=== PATIENT | female | born 1995 | race African-American/Black ===

== ENCOUNTER 2020-01-12 12:45 | Observation (INO) | payer MEDICAID ==
[~2020-01-12] VITALS: Ht 154.9 cm; Wt 95.7 kg
[2020-01-12] MEDS ORDERED: LACTATED RINGERS 1,000 ML IV SCH (13:15)
[2020-01-12] MEDS ORDERED: ONDANSETRON HCL 4MG/2ML INJ IV NR (13:15)
[2020-01-12 13:27] LABS: CLARITY URINE CLEAR (CLEAR); COLOR URINE YELLOW (YELLOW); KETONES URINE TRACE (NEGATIVE); LEUKOCYTE ESTERASE URINE NEGATIVE (NEGATIVE); NITRITE URINE NEGATIVE (NEGATIVE); OCCULT BLOOD URINE NEGATIVE (NEGATIVE); PH URINE 5.5 (4.5-8.0); PROTEIN URINE TRACE (NEGATIVE); SPECIFIC GRAVITY URINE 1.022 (1.005-1.030); UROBILINOGEN URINE 0.2 E.U./dL (0.2-1.0)
[2020-01-12 14:13] LABS: *AMPHETAMINES SCREEN URINE NEGATIVE (NEGATIVE); *BARBITURATES SCREEN URINE NEGATIVE (NEGATIVE); *BENZODIAZEPINES SCREEN URINE NEGATIVE (NEGATIVE); *COCAINE SCREEN URINE NEGATIVE (NEGATIVE)
[2020-01-12 14:14] LABS: CANNABINOID URINE SCREEN NEGATIVE (NEGATIVE); METHADONE URINE SCREEN NEGATIVE (NEGATIVE); OPIATES URINE SCREEN NEGATIVE (NEGATIVE); PHENCYCLIDINE URINE SCREEN NEGATIVE (NEGATIVE)
[2020-01-12] MEDS ORDERED: PNV1TABL76 MT (14:56)
== END 2020-01-12 15:10 | disposition home or self-care (01) ==
LOC: 8 EST LDRP 12:45
PROVIDERS: ADMIT Obstetrics & Gynecology; ATTEND Obstetrics & Gynecology
DX: O21.2 Late vomiting of pregnancy (principal); O26.892 Other specified pregnancy related conditions, second trimester; R42 Dizziness and giddiness; Z3A.25 25 weeks gestation of pregnancy; Z79.899 Other long term (current) drug therapy
CPT/HCPCS: 80305; 81003; 96361; 96374; 99281; G0378; J2405; 96360

== ENCOUNTER 2020-04-23 23:17 | Inpatient (IN) | payer MEDICAID ==
[~2020-04-23] VITALS: Ht 154.9 cm; Wt 85.3 kg
[~2020-04-23 23:17] MED LIST: PNV1TABL76 MT
[2020-04-24] VITALS (21 sets, daily range): BP systolic 123–170; BP diastolic 52–110
[2020-04-24] MEDS ORDERED: CEFTRIAXONE 1 G PREMIX 50 ML IV ONE
[2020-04-24] MEDS ORDERED: LABETALOL 5MG/ML SYR 20 MG/4 ML SYRINGE IV ONE
[2020-04-24 00:28] LABS: CHLORIDE 110 mEq/L (98-107)
[2020-04-24 01:10] LABS: BASOPHILS % 1.2 % (0.0-2.0); EOSINOPHILS % 2.7 % (0.0-5.0); HEMATOCRIT. 39.2 % (36.0-48.0); HEMOGLOBIN. 13.5 g/dL (12.0-16.0); LYMPHOCYTES % 29.6 % (20.0-50.0); MEAN CORPUSCULAR HEMOGLOBIN 26.1 pg (28.0-32.0); MEAN CORPUSCULAR VOLUME 76.1 fL (81.0-99.0); MEAN PLATELET VOLUME 6.9 fl (7.4-10.4); MONOCYTES % 7.2 % (2.0-8.0); NEUTROPHILS % 59.3 % (40.0-76.0); PLATELET 356 x1000/uL (130-400); RED BLOOD CELL COUNT 5.15 mill/uL (4.2-5.4)
[2020-04-24] MEDS ORDERED: ASPIRIN 81MG TABLET PO SCH (01:30)
[2020-04-24 03:03] LABS: CLARITY URINE CLEAR (CLEAR); COLOR URINE YELLOW (YELLOW); KETONES URINE NEGATIVE (NEGATIVE); LEUKOCYTE ESTERASE URINE 2+ (NEGATIVE); NITRITE URINE NEGATIVE (NEGATIVE); OCCULT BLOOD URINE NEGATIVE (NEGATIVE); PROTEIN URINE 1+ (NEGATIVE); SPECIFIC GRAVITY URINE 1.012 (1.005-1.030); UROBILINOGEN URINE 0.2 E.U./dL (0.2-1.0)
[2020-04-24] MEDS ORDERED: ZINC SULFATE 220 MG ( 50 ) CAPSULE PO SCH (04:15)
[2020-04-24] MEDS ORDERED: ONDANSETRON HCL 4MG TABLET PO PRN (04:15)
[2020-04-24] MEDS: AZITHROMYCIN 500 MG in DEXT 5% WATER 250 ML IV SCH (06:09)
[2020-04-24] MEDS ORDERED: POTASSIUM CHLORIDE 20MEQ TABLET SR PO NR (08:15)
[2020-04-24] MEDS: ALBUTEROL 6.7GM HFA INHALER ORI SCH ×2 (08:50→16:30)
[2020-04-24] MEDS ORDERED: METOPROLOL TARTRATE 50MG TABLET PO SCH (09:00)
[2020-04-24] MEDS: FAMOTIDINE 20MG TABLET PO SCH ×2 (09:01→17:57)
[2020-04-24] MEDS: DEXAMETHASONE 4MG TABLET PO SCH (09:01)
[2020-04-24] MEDS: ENOXAPARIN 40MG/0.4ML SYR SUBCUT SCH (09:01)
[2020-04-24] MEDS ORDERED: CLONIDINE 0.1MG TABLET PO PRN (09:30)
[2020-04-24] MEDS: AMLODIPINE 10MG TABLET PO SCH (10:13)
[2020-04-24] MEDS ORDERED: LIDOCAINE HCL/PF 1% 2ML VIAL ONE (10:15)
[2020-04-24] MEDS ORDERED: FUROSEMIDE 40MG/4ML VIAL IVP NR (10:30)
[2020-04-24] MEDS ORDERED: MORPHINE SULFATE 2 MG/ML CPJ (NOT FOR IM USE) IV NR (13:30)
[2020-04-24] MEDS ORDERED: ONDANSETRON 4MG ODT PO PRN (13:52)
[2020-04-24] MEDS: FUROSEMIDE 40MG/4ML VIAL IVP SCH ×3 (15:33→21:30)
[2020-04-24] MEDS: LOSARTAN POTASSIUM 100 MG TABLET PO SCH (15:33)
[2020-04-24] MEDS ORDERED: HYDRALAZINE HCL 100MG TABLET PO NR (17:00)
[2020-04-24] MEDS: LORAZEPAM 2MG/ML CPJ IV PRN (18:45)
[2020-04-24 19:29] LABS: BG BILEVEL POS AIRWAY PRESSURE 16/5; BG CARBOXYHEMOGLOBIN 0.3 % (0.5-1.5); BG DEOXYHEMOGLOBIN 0.4 % (0.0-5.0); BG FRACTION INSPIRED OXYGEN 100; BG METHEMOGLOBIN 0.6 % (0.0-1.5); BG OXYGEN SATURATION 99.6 % (92.0-98.5); BG OXYHEMOGLOBIN 98.7 % (94.0-97.0); BG PCO2 33.2 mmHg (35.0-45.0); BG PH 7.459 (7.350-7.450); BG PO2 349.4 mmHg (75.0-100.0); BG SAMPLE SITE RIGHT RADIAL; BG TOTAL HEMOGLOBIN 16.1 g/dL (12.0-18.0); BG VENT MODE MASK - BIPAP; BG VENT RATE 14 set
[2020-04-24] MEDS: MORPHINE SULFATE 2 MG/ML CPJ (NOT FOR IM USE) IV PRN (21:52)
[2020-04-25] VITALS (93 sets, daily range): BP systolic 100–155; BP diastolic 43–117
[2020-04-25] MEDS ORDERED: IOHEXOL-350 100 ML BOTTLE ONE (00:26)
[2020-04-25] MEDS: CEFTRIAXONE 1,000 MG in DEXTROSE 5% WATER 50 ML IV SCH (01:19)
[2020-04-25] MEDS: MORPHINE SULFATE 2 MG/ML CPJ (NOT FOR IM USE) IV PRN (04:05)
[2020-04-25 05:47] LABS: CHLORIDE 106 mEq/L (98-107)
[2020-04-25 05:50] LABS: BASOPHILS % 0.9 % (0.0-2.0); EOSINOPHILS % 0.8 % (0.0-5.0); HEMATOCRIT. 40.1 % (36.0-48.0); HEMOGLOBIN. 13.6 g/dL (12.0-16.0); LYMPHOCYTES % 17.6 % (20.0-50.0); MEAN CORPUSCULAR HEMOGLOBIN 26.1 pg (28.0-32.0); MEAN CORPUSCULAR VOLUME 76.9 fL (81.0-99.0); MEAN PLATELET VOLUME 6.9 fl (7.4-10.4); MONOCYTES % 8.5 % (2.0-8.0); NEUTROPHILS % 72.2 % (40.0-76.0); PLATELET 346 x1000/uL (130-400); RED BLOOD CELL COUNT 5.21 mill/uL (4.2-5.4); RED CELL DISTRIBUTION WIDTH 16.3 % (11.6-14.6)
[2020-04-25] MEDS: AZITHROMYCIN 500 MG in DEXT 5% WATER 250 ML IV SCH (06:06)
[2020-04-25] MEDS: POTASSIUM CHLORIDE 20MEQ TABLET SR PO SCH (08:35)
[2020-04-25] MEDS: FAMOTIDINE 20MG TABLET PO SCH ×2 (08:35→16:24)
[2020-04-25] MEDS: DEXAMETHASONE 4MG TABLET PO SCH (08:35)
[2020-04-25] MEDS: FUROSEMIDE 40MG/4ML VIAL IVP SCH ×2 (08:36→16:24)
[2020-04-25] MEDS: LOSARTAN POTASSIUM 100 MG TABLET PO SCH (08:36)
[2020-04-25] MEDS: AMLODIPINE 10MG TABLET PO SCH (08:36)
[2020-04-25] MEDS: HYDRALAZINE HCL 100MG TABLET PO SCH ×2 (08:36→20:32)
[2020-04-25] MEDS: ENOXAPARIN 40MG/0.4ML SYR SUBCUT SCH (08:37)
[2020-04-25] MEDS ORDERED: FUROSEMIDE 40MG/4ML VIAL IVP SCH (09:00)
[2020-04-25 09:45] LABS: *BARBITURATES SCREEN URINE NEGATIVE (NEGATIVE); *BENZODIAZEPINES SCREEN URINE NEGATIVE (NEGATIVE); *COCAINE SCREEN URINE NEGATIVE (NEGATIVE); METHADONE URINE SCREEN NEGATIVE (NEGATIVE); OPIATES URINE SCREEN NEGATIVE (NEGATIVE)
[2020-04-25 09:46] LABS: *AMPHETAMINES SCREEN URINE NEGATIVE (NEGATIVE); CANNABINOID URINE SCREEN NEGATIVE (NEGATIVE); PHENCYCLIDINE URINE SCREEN NEGATIVE (NEGATIVE)
[2020-04-25] MEDS ORDERED: DILTIAZEM HCL 5MG/ML 5ML VIAL IV NR ×3 (10:15→11:45)
[2020-04-25] MEDS: LORAZEPAM 2MG/ML CPJ IV PRN ×2 (10:26→16:24)
[2020-04-25] MEDS: ACETAMINOPHEN 325MG TABLET PO PRN ×3 (10:27→21:50)
[2020-04-25] MEDS: DILTIAZEM HCL 60MG TABLET PO SCH ×2 (10:28→18:00)
[2020-04-25 11:34] LABS: BG BASE EXCESS 2.2 mmol/L (-2.0-2.0); BG CARBOXYHEMOGLOBIN 0.8 % (0.5-1.5); BG DEOXYHEMOGLOBIN 6.2 % (0.0-5.0); BG FRACTION INSPIRED OXYGEN 36; BG HCO3 ACT 24.4 mmol/L (22.0-26.0); BG METHEMOGLOBIN 0.4 % (0.0-1.5); BG OXYGEN SATURATION 93.7 % (92.0-98.5); BG OXYHEMOGLOBIN 92.6 % (94.0-97.0); BG PCO2 31.3 mmHg (35.0-45.0); BG PO2 65.9 mmHg (75.0-100.0); BG SAMPLE SITE RIGHT RADIAL; BG TOTAL HEMOGLOBIN 14.5 g/dL (12.0-18.0)
[2020-04-25] MEDS ORDERED: METOPROLOL TARTRATE 5MG/5ML VIAL IV NR (12:15)
[2020-04-25] MEDS: SODIUM CHLORIDE 0.9% 1,000 ML IV SCH ×2 (12:40→20:27)
[2020-04-25] MEDS ORDERED: POTASSIUM CHLORIDE INJ 40 MEQ in DEXT 5% WATER 250 ML IV NR (14:00)
[2020-04-25] MEDS: ALBUTEROL 6.7GM HFA INHALER ORI SCH (14:55)
[2020-04-25 15:02] LABS: CHLORIDE 107 mEq/L (98-107)
[2020-04-25] MEDS: METOPROLOL TARTRATE 5MG/5ML VIAL IV SCH ×2 (15:40→20:32)
[2020-04-26] VITALS (68 sets, daily range): BP systolic 74–149; BP diastolic 30–114
[2020-04-26] MEDS: DILTIAZEM HCL 60MG TABLET PO SCH ×5 (00:13→23:44)
[2020-04-26] MEDS: CEFTRIAXONE 1,000 MG in DEXTROSE 5% WATER 50 ML IV SCH (00:13)
[2020-04-26] MEDS: MORPHINE SULFATE 2 MG/ML CPJ (NOT FOR IM USE) IV PRN ×2 (01:19→09:21)
[2020-04-26] MEDS: ALBUTEROL 6.7GM HFA INHALER ORI SCH ×2 (02:44→21:33)
[2020-04-26] MEDS: METOPROLOL TARTRATE 5MG/5ML VIAL IV SCH ×4 (02:52→22:05)
[2020-04-26] MEDS: SODIUM CHLORIDE 0.9% 1,000 ML IV SCH ×2 (03:48→12:14)
[2020-04-26] MEDS: ACETAMINOPHEN 325MG TABLET PO PRN (04:19)
[2020-04-26] MEDS: AZITHROMYCIN 500 MG in DEXT 5% WATER 250 ML IV SCH (05:25)
[2020-04-26 06:06] LABS: BASOPHILS % 0.6 % (0.0-2.0); EOSINOPHILS % 0.1 % (0.0-5.0); HEMOGLOBIN. 13.6 g/dL (12.0-16.0); MEAN CORPUSCULAR VOLUME 76.2 fL (81.0-99.0); MEAN PLATELET VOLUME 7.3 fl (7.4-10.4); MONOCYTES % 6.2 % (2.0-8.0); NEUTROPHILS % 79.1 % (40.0-76.0); PLATELET 413 x1000/uL (130-400); RED BLOOD CELL COUNT 5.25 mill/uL (4.2-5.4); RED CELL DISTRIBUTION WIDTH 16.5 % (11.6-14.6)
[2020-04-26] MEDS: FUROSEMIDE 40MG/4ML VIAL IVP SCH (09:21)
[2020-04-26] MEDS: DEXAMETHASONE 4MG TABLET PO SCH (09:22)
[2020-04-26] MEDS: LOSARTAN POTASSIUM 100 MG TABLET PO SCH (09:22)
[2020-04-26] MEDS: POTASSIUM CHLORIDE 20MEQ TABLET SR PO SCH (09:22)
[2020-04-26] MEDS: FAMOTIDINE 20MG TABLET PO SCH ×2 (09:22→18:41)
[2020-04-26] MEDS: HYDRALAZINE HCL 100MG TABLET PO SCH ×2 (09:23→22:04)
[2020-04-26] MEDS ORDERED: LIDOCAINE HCL 1% 20ML VIAL (Pyxis) INJ ONE (09:39)
[2020-04-26 10:39] LABS: CHLORIDE 110 mEq/L (98-107)
[2020-04-26] MEDS: ENOXAPARIN 40MG/0.4ML SYR SUBCUT SCH (12:13)
[2020-04-26] MEDS ORDERED: ARIP400S IM (15:07)
[2020-04-27] VITALS (24 sets, daily range): BP systolic 106–154; BP diastolic 48–88
[2020-04-27] MEDS: CEFTRIAXONE 1,000 MG in DEXTROSE 5% WATER 50 ML IV SCH (01:03)
[2020-04-27] MEDS: METOPROLOL TARTRATE 5MG/5ML VIAL IV SCH ×2 (03:24→08:06)
[2020-04-27] MEDS: ACETAMINOPHEN 325MG TABLET PO PRN (03:26)
[2020-04-27 05:42] LABS: CHLORIDE 107 mEq/L (98-107)
[2020-04-27 05:46] LABS: BASOPHILS % 0.5 % (0.0-2.0); EOSINOPHILS % 0.1 % (0.0-5.0); HEMATOCRIT. 38.7 % (36.0-48.0); HEMOGLOBIN. 13.3 g/dL (12.0-16.0); LYMPHOCYTES % 16.6 % (20.0-50.0); MEAN CORPUSCULAR HEMOGLOBIN 26.3 pg (28.0-32.0); MEAN CORPUSCULAR VOLUME 76.4 fL (81.0-99.0); MEAN PLATELET VOLUME 7.3 fl (7.4-10.4); MONOCYTES % 7.3 % (2.0-8.0); NEUTROPHILS % 75.5 % (40.0-76.0); PLATELET 389 x1000/uL (130-400); RED BLOOD CELL COUNT 5.07 mill/uL (4.2-5.4); RED CELL DISTRIBUTION WIDTH 16.5 % (11.6-14.6)
[2020-04-27] MEDS: AZITHROMYCIN 500 MG in DEXT 5% WATER 250 ML IV SCH (06:37)
[2020-04-27] MEDS: DILTIAZEM HCL 60MG TABLET PO SCH (06:46)
[2020-04-27] MEDS: FAMOTIDINE 20MG TABLET PO SCH ×2 (08:05→19:06)
[2020-04-27] MEDS: POTASSIUM CHLORIDE 20MEQ TABLET SR PO SCH (08:05)
[2020-04-27] MEDS: FUROSEMIDE 40MG/4ML VIAL IVP SCH (08:05)
[2020-04-27] MEDS: LOSARTAN POTASSIUM 100 MG TABLET PO SCH (08:05)
[2020-04-27] MEDS: HYDRALAZINE HCL 100MG TABLET PO SCH ×2 (08:06→21:33)
[2020-04-27] MEDS: ENOXAPARIN 40MG/0.4ML SYR SUBCUT SCH (08:07)
[2020-04-27] MEDS ORDERED: DEXAMETHASONE 4MG TABLET PO SCH (09:00)
[2020-04-27] MEDS ORDERED: POTASSIUM CHLORIDE 20MEQ TABLET SR PO NR (09:15)
[2020-04-27] MEDS ORDERED: GUAIFENESIN 200MG/10ML SUGAR FREE UDC PO PRN (10:00)
[2020-04-27] MEDS: GUAIFENESIN 600MG ER TABLET PO SCH ×2 (10:48→21:33)
[2020-04-27] MEDS: DILTIAZEM HCL 90MG TABLET PO SCH ×2 (14:24→21:33)
[2020-04-27] MEDS: METOPROLOL TARTRATE 25MG TABLET PO SCH ×2 (19:07→21:33)
[2020-04-28] VITALS (7 sets, daily range): BP systolic 114–136; BP diastolic 58–96
[2020-04-28] MEDS: CEFTRIAXONE 1,000 MG in DEXTROSE 5% WATER 50 ML IV SCH (00:51)
[2020-04-28] MEDS: DILTIAZEM HCL 90MG TABLET PO SCH (05:33)
[2020-04-28] MEDS: AZITHROMYCIN 500 MG in DEXT 5% WATER 250 ML IV SCH (05:34)
[2020-04-28 05:45] LABS: CHLORIDE 108 mEq/L (98-107)
[2020-04-28 06:10] LABS: BASOPHILS % 0.3 % (0.0-2.0); HEMOGLOBIN. 13.5 g/dL (12.0-16.0); LYMPHOCYTES % 15.6 % (20.0-50.0); MEAN CORPUSCULAR HEMOGLOBIN 25.8 pg (28.0-32.0); MEAN CORPUSCULAR VOLUME 76.6 fL (81.0-99.0); MEAN PLATELET VOLUME 7.4 fl (7.4-10.4); MONOCYTES % 6.1 % (2.0-8.0); PLATELET 393 x1000/uL (130-400); RED BLOOD CELL COUNT 5.23 mill/uL (4.2-5.4); RED CELL DISTRIBUTION WIDTH 16.2 % (11.6-14.6)
[2020-04-28] MEDS: GUAIFENESIN 600MG ER TABLET PO SCH (08:45)
[2020-04-28] MEDS: FAMOTIDINE 20MG TABLET PO SCH (08:45)
[2020-04-28] MEDS: ENOXAPARIN 40MG/0.4ML SYR SUBCUT SCH (08:45)
[2020-04-28] MEDS: LOSARTAN POTASSIUM 100 MG TABLET PO SCH (08:46)
[2020-04-28] MEDS: HYDRALAZINE HCL 100MG TABLET PO SCH (08:46)
[2020-04-28] MEDS: FUROSEMIDE 40MG/4ML VIAL IVP SCH (08:46)
[2020-04-28] MEDS: POTASSIUM CHLORIDE 20MEQ TABLET SR PO SCH (08:46)
[2020-04-28] MEDS: METOPROLOL TARTRATE 25MG TABLET PO SCH (08:47)
[2020-04-28] MEDS ORDERED: DEXAMETHASONE 4MG TABLET PO SCH (09:00)
[2020-04-28] MEDS ORDERED: LOSA100T32 MT (09:54)
[2020-04-28] MEDS ORDERED: POTA20TA82 MT (09:54)
[2020-04-28] MEDS ORDERED: FURO-151 MT (09:54)
[2020-04-28] MEDS ORDERED: LEVO750T21 MT (09:54)
[2020-04-28] MEDS ORDERED: DILT360C27 MT (09:54)
[2020-04-28] MEDS ORDERED: ALBU18HF2 IH (09:55)
[2020-04-28 13:07] LABS: HIV SCREEN 4G Non Reactive (Non Reactive)
[2020-04-28] MEDS ORDERED: DILTIAZEM HCL 90MG TABLET PO SCH (14:00)
[2020-04-29] MEDS ORDERED: FUROSEMIDE 40MG TABLET PO SCH (09:00)
== END 2020-04-28 13:45 | disposition home or self-care (01) | DRG 561 ==
LOC: ER 23:17 → ENRESERV 04-24 02:01 → 7WST 04-24 03:35 → MICUSO 04-24 18:25 → 5EST 04-27 11:07
PROVIDERS: ADMIT Internal Medicine; ATTEND Internal Medicine
PROC: 5A09357 Assistance with Respiratory Ventilation, Less than 24 Consecutive Hours, Continuous Positive Airway Pressure (ICD-10-PCS; 2020-04-24)
PROC: 02HV33Z Insertion of Infusion Device into Superior Vena Cava, Percutaneous Approach (ICD-10-PCS; principal; 2020-04-26)
PROC: B548ZZA Ultrasonography of Superior Vena Cava, Guidance (ICD-10-PCS; 2020-04-26)
DX: O85 Puerperal sepsis (principal); E87.8 Other disorders of electrolyte and fluid balance, not elsewhere classified; E87.6 Hypokalemia; E44.1 Mild protein-calorie malnutrition; I16.1 Hypertensive emergency; I11.0 Hypertensive heart disease with heart failure; Z20.828 Contact with and (suspected) exposure to other viral communicable diseases; J18.9 Pneumonia, unspecified organism; I50.43 Acute on chronic combined systolic (congestive) and diastolic (congestive) heart failure; M94.0 Chondrocostal junction syndrome [Tietze]; E87.2 Acidosis; I42.9 Cardiomyopathy, unspecified; J96.01 Acute respiratory failure with hypoxia; O99.53 Diseases of the respiratory system complicating the puerperium; O89.1 Cardiac complications of anesthesia during the puerperium; O99.285 Endocrine, nutritional and metabolic diseases complicating the puerperium; O25.3 Malnutrition in the puerperium; O16.5 Unspecified maternal hypertension, complicating the puerperium; R94.31 Abnormal electrocardiogram [ECG] [EKG]; O90.89 Other complications of the puerperium, not elsewhere classified; Z82.3 Family history of stroke; Z82.49 Family history of ischemic heart disease and other diseases of the circulatory system; Z98.891 History of uterine scar from previous surgery
CPT/HCPCS: 36415; 36600; 71045; 71275; 76856; 76937; 80048; 80053; 80305; 81003; 82375; 82805; 82962; 83605; 83735; 83880; 84145; 84484; 84550; 85025; 87070; 87389; 87635; 93005; 93306; 94640; 94660; 99285; C1725; J0456; J0696; J1650; J1940; J2060; J2270; J3480; J3490; J7030; J7060; J8540; Q0162; Q9967